=== PATIENT | female | born 1995 | race Two or more races ===

== ENCOUNTER 2024-10-19 11:36 | Inpatient (IN) | payer BC ==
[~2024-10-19] VITALS: Ht 160 cm; Wt 60.0 kg
[2024-10-19] MEDS ORDERED: METR500T PO (11:51)
[2024-10-19] MEDS ORDERED: CIPR-262 PO (11:51)
[2024-10-19] MEDS ORDERED: ONDANSETRON 4 MG/2 ML VIAL ONE ×2 (12:38→16:19)
[2024-10-19] MEDS: ONDANSETRON 4 MG/2 ML VIAL IV ONE ×2 (12:47→16:19)
[2024-10-19] MEDS: IV NORMAL SALINE 1000 ML BAG IV ONE (12:47)
[2024-10-19 12:48] LABS: PLATELET COUNT (AUTO) 270 K/uL (179-408); RED BLOOD CELL COUNT(AUTO) 4.30 MIL/uL (3.63-4.92); RED CELL DISTRIBUTION WIDTH 13.8 % (12.3-17.7); WHITE BLOOD COUNT (AUTO) 9.6 K/uL (3.8-11.8)
[2024-10-19 12:55] LABS: CREATININE 2.3 mg/dL (0.6-1.3); SODIUM SERUM 139.0 mmol/L (136-145); UREA NITROGEN, BLOOD 16.0 mg/dL (7-18)
[2024-10-19 13:01] LABS: ASPARTATE AMINOTRANSFERASE 22.0 U/L (15-37); TOTAL PROTEIN, SERUM 7.9 g/dL (6.4-8.2)
[2024-10-19] MEDS: IV NS 1000 ML 1,000 ML IV ONE (13:07)
[2024-10-19 13:45] VITALS: BP 112/88
[2024-10-19 14:13] LABS: *BILIRUBIN,URIN NEGATIVE (NEGATIVE); *BLOOD, URINE 1+ (NEGATIVE); *CLARITY,URINE SLIGHTLY HAZY (CLEAR); *COLOR,URINE YELLOW (YELLOW); *KETONES,URINE NEGATIVE (NEGATIVE); *PROTEIN,URINE 2+ (NEGATIVE); *UROBILINOGEN,URINE 0.2 E.U./dl (NORMAL); LEUKOCYTE ESTERASE ,URINE 1+ (NEGATIVE); NITRITE, URINE NEGATIVE (NEGATIVE); UGLUCOSE NEGATIVE (NEGATIVE)
[2024-10-19 14:14] LABS: SQUAMOUS EPITHELIAL CELL,UR FEW /HPF (NONE SEEN); URINE AMORPHOUS URATE FEW /HPF
[2024-10-19] MEDS ORDERED: CEFTRIAXONE /D5W 50ML IVPB **ER PYXIS IV ONE (14:37)
[2024-10-19] MEDS: CEFTRIAXONE 1 G in IV DEXTROSE 5% 50 ML IV ONE (14:38)
[2024-10-19 14:59] LABS: *URINE HCG, QUAL NEGATIVE (NEGATIVE)
[2024-10-19] MEDS ORDERED: MEROPENEM 1,000 MG in IV NORMAL SALINE 100 ML IV ONE (18:30)
[2024-10-19] MEDS ORDERED: REMEDY ESSENTIAL ZINC PASTE 113 GM TP PRN (18:30)
[2024-10-19] MEDS ORDERED: HYDROCODONE/APAP 10-325 MG TABLET PO PRN (18:30)
[2024-10-19 22:12] VITALS: BP 110/79; TEMP 99.4; O2SAT 99
[2024-10-19] MEDS ORDERED: CEFEPIME HCL 1 G VIAL ONE (22:34)
[2024-10-19] MEDS: ACETAMINOPHEN 325 MG TABLET PO PRN (22:40)
[2024-10-19] MEDS: IV NS 1000 ML 1,000 ML IV PRN (22:56)
[2024-10-19] MEDS: CEFEPIME HCL 1 G in IV DEXTROSE 5% 50 ML IV SCH (23:00)
[2024-10-20 06:41] VITALS: BP 106/73; TEMP 97.9; O2SAT 100
[2024-10-20] MEDS: MAGNESIUM HYDROXIDE 30 ML LIQUID UDC PO PRN (06:44)
[2024-10-20 07:00] LABS: PLATELET COUNT (AUTO) 258 K/uL (179-408); RED BLOOD CELL COUNT(AUTO) 3.84 MIL/uL (3.63-4.92); RED CELL DISTRIBUTION WIDTH 13.8 % (12.3-17.7); WHITE BLOOD COUNT (AUTO) 8.4 K/uL (3.8-11.8)
[2024-10-20 07:28] LABS: CREATININE 4.2 mg/dL (0.6-1.3); SODIUM SERUM 143.0 mmol/L (136-145); UREA NITROGEN, BLOOD 25.0 mg/dL (7-18)
[2024-10-20 12:00] VITALS: BP 128/82; TEMP 97.7; O2SAT 100
[2024-10-20] MEDS: ONDANSETRON 4 MG/2 ML VIAL IV PRN (15:56)
[2024-10-20 16:00] VITALS: BP 117/86; TEMP 98.1; O2SAT 99
[2024-10-20 19:50] VITALS: BP 114/81; TEMP 97.7; O2SAT 100
[2024-10-20] MEDS: TAMSULOSIN HCL 0.4 MG CAP.SR.24H PO SCH (20:13)
[2024-10-20] MEDS: TRAMADOL HCL 50 MG TABLET PO PRN (22:42)
[2024-10-21] MEDS: IV NS 1000 ML 1,000 ML IV PRN (03:18)
[2024-10-21 05:06] VITALS: BP 107/66; TEMP 98; O2SAT 98
[2024-10-21] MEDS: CEFEPIME HCL 1 G in IV DEXTROSE 5% 50 ML IV SCH (05:40)
[2024-10-21 06:41] LABS: PLATELET COUNT (AUTO) 227 K/uL (179-408); RED BLOOD CELL COUNT(AUTO) 3.60 MIL/uL (3.63-4.92); RED CELL DISTRIBUTION WIDTH 13.7 % (12.3-17.7); WHITE BLOOD COUNT (AUTO) 8.1 K/uL (3.8-11.8)
[2024-10-21 08:16] LABS: CREATININE 3.7 mg/dL (0.6-1.3); SODIUM SERUM 138.0 mmol/L (136-145); UREA NITROGEN, BLOOD 23.0 mg/dL (7-18)
[2024-10-21 12:00] VITALS: BP 103/69; TEMP 97.6; O2SAT 100
[2024-10-21 13:06] LABS: CREATINE KINASE, TOTAL 29.0 U/L (26-192)
[2024-10-21 16:00] VITALS: BP 106/78; TEMP 98.5; O2SAT 100
[2024-10-21 19:00] VITALS: BP 112/73; TEMP 98.6; O2SAT 98
[2024-10-22 06:00] VITALS: BP 111/73; TEMP 98; O2SAT 96
[2024-10-22 07:04] LABS: PLATELET COUNT (AUTO) 216 K/uL (179-408); RED BLOOD CELL COUNT(AUTO) 3.46 MIL/uL (3.63-4.92); RED CELL DISTRIBUTION WIDTH 13.4 % (12.3-17.7); WHITE BLOOD COUNT (AUTO) 5.8 K/uL (3.8-11.8)
[2024-10-22 07:31] LABS: CREATININE 2.1 mg/dL (0.6-1.3); SODIUM SERUM 143.0 mmol/L (136-145); UREA NITROGEN, BLOOD 15.0 mg/dL (7-18)
[2024-10-22] MEDS: MAGNESIUM OXIDE 400 MG TABLET PO ONE (10:07)
[2024-10-22 11:56] VITALS: BP 111/72; TEMP 98.3; O2SAT 100
[2024-10-22 16:01] VITALS: BP 121/78; TEMP 97.9; O2SAT 99
[2024-10-22 18:40] LABS: CREATININE 1.4 mg/dL (0.6-1.3); SODIUM SERUM 144.0 mmol/L (136-145); UREA NITROGEN, BLOOD 12.0 mg/dL (7-18)
[2024-10-22 19:00] VITALS: BP 115/77; TEMP 98.8; O2SAT 100
[2024-10-23 06:34] VITALS: BP 120/77; TEMP 97.9; O2SAT 96
[2024-10-23 07:30] LABS: CREATININE 1.0 mg/dL (0.6-1.3); SODIUM SERUM 141.0 mmol/L (136-145); UREA NITROGEN, BLOOD 11.0 mg/dL (7-18)
[2024-10-23] MEDS ORDERED: LEVO500T90 PO (08:00)
[2024-10-23] MEDS ORDERED: MAGNESIUM OXIDE 400 MG TABLET PO ONE (10:00)
== END 2024-10-23 10:05 | disposition home or self-care (01) | DRG 690 ==
LOC: ER 11:44 → MEDSURG3 20:21
PROVIDERS: ADMIT Nurse Practitioner Acute Care; ATTEND Nurse Practitioner Acute Care
DX: N10 Acute pyelonephritis (principal); N17.0 Acute kidney failure with tubular necrosis; Z90.49 Acquired absence of other specified parts of digestive tract; Z97.5 Presence of (intrauterine) contraceptive device; N32.89 Other specified disorders of bladder
CPT/HCPCS: 36415; 74018; 76770; 83735; 84100; 84703; 85025; 87086; G0378; J0692; J0696; J2405; J7040